=== PATIENT | female | born 1970 | race Caucasian/White ===

== ENCOUNTER → 2023-12-26 06:30 | Day surgery (SDC) | payer BC, SELFPAY | LOC: GI 06:30 | PROVIDERS: ATTENDING PHYSICIAN Internal Medicine; FAMILY PHYSICIAN Nurse Practitioner Family | DX: Z12.11 Encounter for screening for malignant neoplasm of colon (principal); K57.30 Diverticulosis of large intestine without perforation or abscess without bleeding; K62.89 Other specified diseases of anus and rectum; D12.0 Benign neoplasm of cecum; K62.1 Rectal polyp | CPT/HCPCS: 45385; 88305 ==

== ENCOUNTER → 2024-09-01 18:57 | Outpatient (REF) | payer BC, SELFPAY | LOC: WDC 18:57 | PROVIDERS: ATTENDING PHYSICIAN Nurse Practitioner Family | DX: Z12.31 Encounter for screening mammogram for malignant neoplasm of breast (principal) | CPT/HCPCS: 77063; 77067 ==

== ENCOUNTER 2025-03-23 07:11 | Emergency (ER) | payer BC, SELFPAY ==
[2025-03-23 07:14] VITALS: BP 166/102
--- NOTE | 2025-03-23 08:18 | ED.GENMED ---
History of Present Illness
General
Chief Complaint: Skin Surface Trauma
Source: patient
Exam Limitations: none
Time Seen by Provider: 03/23/25 07:22
History of Present Illness
History of Present Illness:
54-year-old female presents with multiple lacerations to right elbow she sustained today. She tripped over her dog and landed into a glass cabinet. Last tetanus unknown. No head strike. She is not anticoagulated. No other complaints at this time
Phy Exam
Physical Exam
Physical Exam:
General: Well-appearing female no acute distress
Skin: Large laceration over the olecranon area of the right elbow measuring about 8 cm ragged in nature without foreign body. There are multiple other small lacerations measuring less than 1 cm flap type in nature superficial without current
bleeding. The bursa is visible through the large laceration. No muscle or tendon involvement
Musculoskeletal exam: Good range of motion of the right elbow wrist and fingers. Good sensation to the right hand
Vascular: 2+ radial pulse right wrist
Course
Orders/Labs/Results
Orders:
Orders
03/23/25 08:16
Tetanus/Diphth/Acelpertussis [Adacel] 0.5 ml IM .ONCE ONE
Vital Signs
Initial and Last Documented VS:
Initial Vital Signs
Temp Pulse Resp BP Pulse Ox
98.5 F 109 18 166/102 100
03/23/25 07:14 03/23/25 07:14 03/23/25 07:14 03/23/25 07:14 03/23/25 07:14
Last Documented Vital Signs
Temp Pulse Resp BP Pulse Ox
98.5 F 109 18 166/102 100
03/23/25 07:14 03/23/25 07:14 03/23/25 07:14 03/23/25 07:14 03/23/25 07:14
MDM/Problems Addressed
Differential Diagnosis Includes:
Large laceration right elbow copiously irrigated with saline solution and anesthetized with 1% lidocaine with epinephrine. 4-0 Prolene sutures were used in a simple interrupted fashion to provide wound edge approximation and hemostasis. A total of
20 2 sutures were required to do so. The remaining wounds were inspected for any foreign bodies and all visible pieces of glass were removed from these wounds. No sutures indicated for the remaining wounds. Adaptic gauze dressing and a wrap were
applied to the arm. Tetanus vaccine updated. Stable for discharge
*Pulse Oximetry
SaO2: 100
Oxygen Mode of Delivery: Room air
Patient hypoxic: no
*Critical Care Note
Total Time (30-74mins, 75-104mins- exclusive of procedures): Not Applicable
ED Attending Note
-
Portions of this chart may have been created with voice recognition software.� Occasional wrong word or��sound alike� substitutions may have occurred due to the inherent limitations of voice recognition software.
Discharge Plan
Departure
Patient Disposition: Home (Routine Discharge)
Date of Disposition: 03/23/25
Time of Disposition: 08:20
Patient with high blood pressure during this ER visit?: No
Discharge Problem:
Laceration
Instructions: Laceration Repair With Stitches (DC)
Prescriptions:
New
cephalexin 500 mg capsule
500 mg PO TID 7 Days Qty: 21 0RF
No Action
Zantac
#2
Activity Restrictions/Additional Instructions:
Keep clean. Dry the elbow off when it gets wet in the shower. Change dressing as needed. Take antibiotics as directed. Have sutures removed in 2 weeks.
Interventions
Interventions:
*Risk Screen - Suicide Last Done: 03/23/25 07:18
Discharge Date and Time
Print Language: AZERI
[2025-03-23] MEDS: ADACEL 0.5 ML IM (08:49)
== END 2025-03-23 09:30 | disposition home or self-care (01) ==
LOC: EMR 07:11
PROVIDERS: EMERGENCY PHYSICIAN Emergency Medicine; FAMILY PHYSICIAN Nurse Practitioner Family
DX: S51.011A Laceration without foreign body of right elbow, initial encounter (principal); Z23 Encounter for immunization; W01.110A Fall on same level from slipping, tripping and stumbling with subsequent striking against sharp glass, initial encounter
CPT/HCPCS: 99282; 12004; 90471; 90715